=== PATIENT | female | born 1985 | race African-American/Black ===

== ENCOUNTER 2024-05-19 14:45 | Emergency (ER) | payer SELFPAY ==
[~2024-05-19] VITALS: Ht 162.6 cm; Wt 139.0 kg
[~2024-05-19 14:45] MED LIST: CYCLOBENZAPRINE10 MG PO; KETOROLAC TROME10 MG PO
[2024-05-19] MEDS: ONDANSETRON HCL 4 MG ORAL DISINTEGRATING TAB PO ONE (15:24)
[2024-05-19] MEDS ORDERED: PENICILLIN V P500 MG PO (15:55)
[2024-05-19] MEDS ORDERED: DEXAMETHASONE SOD PHOS 10 MG/1 ML VIAL IV ONE (16:00)
[2024-05-19 16:09] VITALS: PULSE 95; RESP 18; TEMP 99.8; O2SAT 97
[2024-05-19] MEDS: DEXAMETHASONE SOD PHOS INJ 4 MG/ML SDV IM ONE (16:26)
== END 2024-05-19 16:32 | disposition home or self-care (01) ==
LOC: FSED 14:51
DX: R11.2 Nausea with vomiting, unspecified (principal); J02.0 Streptococcal pharyngitis; Z11.52 Encounter for screening for COVID-19
CPT/HCPCS: 0223U; 81003; 81025; 83518; 96372; 99283; J1100; Q0162

== ENCOUNTER 2024-10-07 10:57 | Emergency (ER) | payer OTHER ==
[~2024-10-07] VITALS: Ht 165.1 cm; Wt 144.3 kg
[~2024-10-07 10:57] MED LIST changes: +PENICILLIN V P500 MG PO
[2024-10-07 14:04] VITALS: PULSE 70; RESP 18; TEMP 98.3; O2SAT 100
== END 2024-10-07 14:04 | disposition home or self-care (01) ==
LOC: FSED 11:18
DX: R51.9 Headache, unspecified (principal); R56.9 Unspecified convulsions; E66.01 Morbid (severe) obesity due to excess calories
CPT/HCPCS: 70450; 81025; 99283

== ENCOUNTER 2025-01-13 23:14 | Emergency (ER) | payer OTHER ==
[~2025-01-13] VITALS: Ht 162.6 cm; Wt 144.2 kg
[2025-01-13 23:18] VITALS: PULSE 60; RESP 18; TEMP 97.7
[2025-01-14] MEDS: DEXAMETHASONE SOD PHOS INJ 4 MG/ML SDV IV ONE (00:04)
[2025-01-14] MEDS: ONDANSETRON HCL INJ 2MG/ML 2ML 2 MG/ML VIAL IV STA (00:04)
[2025-01-14] MEDS: KETOROLAC TROMETHAMINE 30 MG/ML VIAL IV STA (00:04)
[2025-01-14] MEDS: SODIUM CHLORIDE 0.9% 1000ML 1,000 ML IV ONE (00:05)
[2025-01-14 01:00] VITALS: BP 137/78; PULSE 62; RESP 16; TEMP 97.7; O2SAT 99
== END 2025-01-14 01:09 | disposition home or self-care (01) ==
LOC: FSED 23:17
DX: R51.9 Headache, unspecified (principal); R09.81 Nasal congestion; E66.01 Morbid (severe) obesity due to excess calories
CPT/HCPCS: 80053; 85025; 96374; 96375; 99284; J1100; J1885; J2405; J7030

== ENCOUNTER 2025-04-11 20:25 | Emergency (ER) | payer OTHER ==
[~2025-04-11] VITALS: Ht 162.6 cm; Wt 139.7 kg
[~2025-04-11 20:25] MED LIST changes: +VENTOLIN HFA18 GM INH
[2025-04-11 20:32] VITALS: PULSE 68; RESP 18; TEMP 98.2
[2025-04-11] MEDS: SODIUM CHLORIDE 0.9% 1000ML 1,000 ML IV ONE (21:06)
[2025-04-11] MEDS: FAMOTIDINE 20 MG/2 ML VIAL IV STA (21:06)
[2025-04-11] MEDS: KETOROLAC TROMETHAMINE 30 MG/ML VIAL IV STA (21:07)
[2025-04-12] MEDS ORDERED: COLACE100 M1 PO (00:03)
[2025-04-12 01:05] VITALS: BP 169/90; PULSE 66; RESP 18; TEMP 98.4; O2SAT 100
== END 2025-04-12 01:05 | disposition home or self-care (01) ==
LOC: FSED 20:32
DX: R10.11 Right upper quadrant pain (principal); R18.8 Other ascites; D25.9 Leiomyoma of uterus, unspecified; D64.9 Anemia, unspecified; K59.00 Constipation, unspecified
CPT/HCPCS: 74176; 76705; 80053; 81003; 81025; 85025; 96374; 96375; 99284; J1308; J1885; J7030